=== PATIENT | female | born 2000 | race Caucasian/White ===

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

== ENCOUNTER 2021-12-25 23:48 | Emergency (ER) | payer SELFPAY ==
[2021-12-26 00:10] VITALS: BP 105/64; PULSE 115; RESP 20; TEMP 36.7; O2SAT 98
--- NOTE | 2021-12-26 00:18 | W.ED.GENAD ---
Discharge Plan Disposition Patient Disposition: HOME Condition: Good Discharge Details Clinical Impression: Felon of finger of left hand Primary Care Provider: Daisy Kruse ED Provider: Navneet Blanco Home Meds and New Rx's Prescriptions: New sulfamethoxazole-trimethoprim [Bactrim DS] 800-160 mg tablet 1 tab PO BID Qty: 20 0RF Discharge Instructions Instructions: Cellulitis (ED) Additional Instructions: You have an infection in your finger called a felon. Please continue to push any pus out if possible. Please take antibiotic as directed. Please keep it clean. If you notice any worsening of your symptoms, or any new symptoms such as spreading of the redness, vomiting, diarrhea, fever, chills, shortness of breath, chest pain, numbness, weakness, or fainting , please return immediately to the emergency department for reevaluation. Please follow up with your primary care provider as soon as possible for reassessment and reevaluation. As always, it was a pleasure participating in your medical care today. Referrals: Daisy Kruse [Primary Care Provider] - Medical Decision Making This is a 21-year-old female who is right-hand dominant who presents today for left thumb pain. Patient states that for the last 2 to 3 days she noticed some swelling on her left thumb, she denies any trauma or needle injections at that site. And then today she was squeezing it and a moderate amount of pus came out and she heard a pop. However she states that with the continued pus she was concerned that there may be an underlying infection that requires antibiotics. She denies any fever or chills. She denies any drug use. She denies any trauma. She does not know when her tetanus was last updated. She has no pain in her hand or arm. She denies any other complaints. Symptoms are worsened with movement and palpation. Improved by nothing. Physical exam demonstrates a small area of swelling on the distal pad of the left thumb with a central area that is actively draining small amount of purulence when squeezed. No evidence of paronychia currently. I suspect the patient had a mild felon, and then was able to pop it on her own, and it is now draining. We will start the patient on antibiotic covering MRSA. We will give Bactrim DS here. With no evidence of flexor or extensor tenosynovitis, no other concerning symptoms on exam, I see no indication for imaging or labs. Discussed red flags which to return. We will update the patient's tetanus status. I have extensively reviewed the treatment plan and discharge instructions with the patient. I have addressed all patient concerns at this time. The patient was made aware of what symptoms to monitor for that would warrant a return to the emergency department. Discussed the plan with the patient, they demonstrate verbal understanding and agreement with our assessment and plan at this time. The documentation in this chart was dictated using [employer] dictation software. Please excuse any dictation errors. HPI General Date/Time Provider Initiated Documentation: 12/25/21 23:49. HPI Narrative: This is a 21-year-old female who is right-hand dominant who presents today for left thumb pain. Patient states that for the last 2 to 3 days she noticed some swelling on her left thumb, she denies any trauma or needle injections at that site. And then today she was squeezing it and a moderate amount of pus came out and she heard a pop. However she states that with the continued pus she was concerned that there may be an underlying infection that requires antibiotics. She denies any fever or chills. She denies any drug use. She denies any trauma. She does not know when her tetanus was last updated. She has no pain in her hand or arm. She denies any other complaints. Symptoms are worsened with movement and palpation. Improved by nothing. Related Data Home Medications Medication Instructions Recorded Confirmed sulfamethoxazole 800 1 tab PO BID #20 tab 12/26/21 mg-trimethoprim 160 mg tablet (Bactrim DS) Previous Rx's Medication Instructions Recorded sulfamethoxazole 800 1 tab PO BID #20 tab 12/26/21 mg-trimethoprim 160 mg tablet (Bactrim DS) Allergies Allergy/AdvReac Type Severity Reaction Status Date / Time No Known Allergies Allergy Unverified 04/21/20 22:01 General Stated Complaint: Cellulitis ARLEEN: 4 Review of Systems All systems reviewed & are unremarkable except as noted in HPI and below PFSH All Active Problems Felon of finger of left hand (Acute) Social History Smoking/Tobacco Use Status: Current every day Tobacco Type: cigarettes Smoking risk assessment performed?: Yes Alcohol Intake: never Drug use: Never Substance use type: does not use Do you feel safe at home: Yes Do you feel safe in your relationship?: Yes Exam Narrative Exam Narrative: 1.Const: Well-nourished, Well-developed, appearing stated age 2.Eyes: PERRL, no conjunctival injection, and symmetrical lids. 3.ENT: Atraumatic external nose and ears. Moist MM. Neck: Symmetric, trachea midline, No thyromegaly. 4.CVS: +S1/S2, No murmurs or gallops. Peripheral pulses 2+ and equal in all extremities. Brisk capillary refill in all extremities. 5.RESP: Unlabored respiratory effort. Clear to auscultation bilaterally. No wheezes rales or rhonchi 6.GI: Soft, Nontender/Nondistended, No hepatosplenomegaly. No guarding or rebound. 7.MSK: Normocephalic/Atraumatic, patient left thumb demonstrates mild swelling at the distal tip, minimal redness, there is a central area on the pad of the thumb that is actively oozing small amount of purulent material when squeezed. No evidence of current paronychia. Suspect that there was a felon previously, and it is now actively draining. No evidence of flexor or extensor tenosynovitis. No sausage-shaped digit. Sensation intact. Normal strength is present on exam. 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 Sensation grossly intact, no focal neurologic deficits. 10.Psych: (AAO) x3. Appropriate mood and affect Course Vital Signs Vital signs: Vital Signs Temperature 36.7 C 12/26/21 00:10 Pulse 115 H 12/26/21 00:10 Respiratory Rate 20 12/26/21 00:10 Blood Pressure 105/64 12/26/21 00:10 Pulse Oximetry 98 12/26/21 00:10 Temperature 36.7 C 12/26/21 00:10 Temperature Source Oral 12/26/21 00:10 Pulse 115 H 12/26/21 00:10 Respiratory Rate 20 12/26/21 00:10 Respiratory Effort 12/26/21 00:16 Blood Pressure 105/64 12/26/21 00:10 Blood Pressure Position Sitting 12/26/21 00:10 Pulse Oximetry 98 12/26/21 00:10 Oxygen Delivery Method Room Air 12/26/21 00:10 Oxygen Flow Rate 0 12/26/21 00:10 Pain Level 8 12/26/21 00:10
[2021-12-26] MEDS: Sulfameth/Trimeth DS TAB 1 TAB PO (00:31)
[2021-12-26] MEDS: Sulfameth/Trimeth DS, 2 TABS/BTL 1 TAB PO (00:32)
== END 2021-12-26 00:35 | disposition home or self-care (01) ==
PROVIDERS: Emergency Provider Student in an Organized Health Care Education/Training Program; PCP Pediatrics
DX: L03.012 Cellulitis of left finger (principal)
CPT/HCPCS: 90471; 99284; 99283